=== PATIENT | male | born 1975 | race Caucasian/White ===

== ENCOUNTER 2017-05-07 16:39 | Emergency (ER) | payer OTHER, SELFPAY ==
[2017-05-07 17:04] LABS: #Basophils 0.1 thou/uL (0.0-0.2); #Eosinphils 0.5 thou/uL (0.0-0.7); #Lymphocytes 1.4 thou/uL (1.20-3.40); #Monocytes 0.4 thou/uL (0.11-0.59); #Neutrophils 2.8 thou/uL (1.40-6.50); %Eosinophils 9.6 % (0.0-10.0); %Lymphocytes 27.8 % (21.0-51.0); %Monocytes 7.7 % (0.0-10.0); Hematocrit 42.3 % (42.0-52.0); Mean Platelet Volume 7.9 fL (7.4-10.4); Red Blood Cell (RBC) Count 4.51 mill/uL (4.70-6.10); White Blood Cell (WBC) Count 5.2 thou/uL (4.8-10.8)
[2017-05-07] MEDS ORDERED: ISOVUE-370 76%-LOCM 1 ML ONE (17:06)
[2017-05-07 17:22] LABS: ALT (SGPT) 27 U/L (8-55); AST (SGOT) 18 U/L (5-34); Alkaline Phosphatase 67 U/L (40-150); Anion Gap 11 mmol/L (10-20); BUN (Urea Nitrogen) 12 mg/dL (8.9-20.6); Bilirubin, Total 0.5 mg/dL (0.2-1.2); Calc. Creatinine Clearance 0 mL/min (70-130); Calcium 9.3 mg/dL (7.8-10.44); Carbon Dioxide 28 mmol/L (22-29); Chloride 107 mmol/L (98-107); Estimated GFR-MDRD 68; Globulin 3.3 g/dL (2.4-3.5); Protein, Total 7.1 g/dL (6.0-8.3)
[2017-05-07 17:26] LABS: CK (CPK) 101 U/L (30-200); Lipase 29 U/L (8-78)
[2017-05-07 17:38] LABS: Troponin I Less than 0.010 ng/mL (< 0.028)
--- NOTE | 2017-05-07 18:27 | RAD ---
ONE VIEW CHEST: History: Chest pain. Comparison: 12-19-04 FINDINGS: Portable upright chest. Normal cardiac silhouette. Pulmonary vessels and hilum are normal. Costophre christal angles are clear. Possible scarring or atelectasis in the left lung base. No consolidation or ma ss. No pneumothorax or osseous abnormality. IMPRESSION: No acute cardiopulmonary process. POS: [facility]
--- NOTE | 2017-05-07 20:54 | CT ---
CT ANGIOGRAM OF THE CHEST: History: Evaluate for pulmonary artery embolism. Chest pain, onset today. Comparison: None. Technique: CT angiogram of the chest was performed in the axial plane. Coronal and bilateral oblique 3D reformatted images are submitted for interpretation. FINDINGS: Trachea and central bronchi are patent. There are patchy ground glass opacities predominately in bot h lower lobes which may be due to edema. No mass. No consolidation. No pleural effusions or pneumoth orax. No mediastinal mass, lymphadenopathy, or hematoma. Heart size is within normal limits. No significan t pericardial fluid. The thoracic aorta and upper abdominal aorta have a normal caliber. No periaort ic fat stranding. Visualized fat organs are grossly unremarkable. Questionable right adrenal gland nodule, incompletel y evaluated. There are no osteoblastic or osteolytic lesions. Adequate contrast opacification of the pulmonary artery systems to the level of the segmental arteri es. No filling defect to suggest thromboembolism. IMPRESSION: 1. No evidence of pulmonary embolism to the level of the segmental arteries. 2. Questionable indeterminate right adrenal nodule which can be better interrogated on non-emergent basis with abdominal MRI or adrenal mass protocol CT. POS: [facility]
--- NOTE | 2017-05-13 11:45 | EKG ---
Test Reason : CHEST PAIN Blood Pressure : / mmHG Vent. Rate : 088 BPM Atrial Rate : 088 BPM P-R Int : 148 ms QRS Dur : 092 ms QT Int : 344 ms P-R-T Axes : 052 008 006 degrees QTc Int : 416 ms Normal sinus rhythm Normal ECG Confirmed by VICKI PINON, HUMBLE ([id number]), marketing editor GILBERT BILLS ([id number]) on 05/13/2017 11:44:56 AM Referred By: JOYCE Confirmed By:HUMBLE COHEN MD
== END 2017-05-07 19:24 | disposition home or self-care (01) ==
LOC: ERS 16:39
DX: R07.9 Chest pain, unspecified (principal); F41.9 Anxiety disorder, unspecified
CPT/HCPCS: 36415; 71010; 71275; 80053; 82553; 83690; 84484; 85025; 85379; 93005; 96360

== ENCOUNTER 2022-09-29 14:58 | Outpatient (CLI) | payer BC | END 2022-09-29 14:59 | disposition home or self-care (01) | LOC: TBSIIMAG 14:58 | PROVIDERS: ATTEND Orthopaedic Surgery | DX: S83.411A Sprain of medial collateral ligament of right knee, initial encounter (principal); S83.231A Complex tear of medial meniscus, current injury, right knee, initial encounter; S83.521A Sprain of posterior cruciate ligament of right knee, initial encounter; R93.7 Abnormal findings on diagnostic imaging of other parts of musculoskeletal system; M23.8X1 Other internal derangements of right knee; M17.11 Unilateral primary osteoarthritis, right knee; M23.91 Unspecified internal derangement of right knee ==

== ENCOUNTER 2023-06-28 16:19 | Emergency (ER) | payer BC ==
[~2023-06-28 16:19] MED LIST: Iopamidol-370 76% 500 ML MDV (1 ML CHARGE) ONE
[2023-06-28 17:30] LABS: #Eosinphils 0.2 thou/uL (0.0-0.7); #Monocytes 0.8 thou/uL (0.11-0.59); #Neutrophils 6.3 thou/uL (1.40-6.50); %Basophils 0.4 % (0.0-1.0); %Eosinophils 2.1 % (0.0-10.0); %Lymphocytes 13.4 % (21.0-51.0); %Monocytes 9.1 % (0.0-10.0); %Neutrophils 74.6 % (42.0-75.0); Hematocrit 43.4 % (42.0-52.0); Hemoglobin 14.9 g/dL (14.0-18.0); Mean Corpuscular HGB CONC 34.3 g/dL (32.0-36.0); Mean Corpuscular Volume 93.1 fl (78.0-98.0); Mean Platelet Volume 10.5 fL (7.4-10.4); Platelet Count 196 10x3/uL (130-400); Red Blood Cell (RBC) Count 4.66 mill/uL (4.70-6.10); White Blood Cell (WBC) Count 8.5 10x3/uL (4.8-10.8)
[2023-06-28] MEDS ORDERED: Ketorolac Tromethamine 30 MG/ML VIAL ONE (17:39)
[2023-06-28 18:00] LABS: ALT (SGPT) 28 U/L (8-55); AST (SGOT) 19 U/L (5-34); Albumin 4.2 g/dL (3.5-5.0); Alkaline Phosphatase 59 U/L (40-110); Anion Gap 11 mmol/L (10-20); BUN (Urea Nitrogen) 14 mg/dL (8.9-20.6); Bilirubin, Total 1.8 mg/dL (0.2-1.2); Calc. Creatinine Clearance 0 mL/min (70-130); Calcium 9.4 mg/dL (7.8-10.44); Carbon Dioxide 30 mmol/L (22-29); Chloride 104 mmol/L (98-107); Estimated GFR 76; Globulin 3.1 g/dL (2.4-3.5); Glucose 76 mg/dL (70-105); Lipase 23 U/L (8-78); Potassium 3.8 mmol/L (3.5-5.1); Protein, Total 7.3 g/dL (6.0-8.3); Sodium 141 mmol/L (136-145)
[2023-06-28 18:12] LABS: Bacteria/HPF None Seen HPF (None Seen); Bilirubin Negative (Negative); Blood, Urine Negative (Negative); CAUTI Indications for Culture Pelvic or flank pain; Clarity Clear (Clear); Glucose, Urine (Dipstick) Normal (Negative); Ketone, Urine Negative (Negative); Leukocyte Negative Leu/uL (Negative); Nitrite Negative (Negative); Protein, Urine (Dipstick) Negative (Neg-Trace); RBC/HPF 0-3 HPF (0-3); Specific Gravity, Urine 1.021 (1.002-1.036); Squamous Epithelial 0-3 HPF (0-3); Urobilinogen Normal mg/dL (Less than 2); WBC/HPF 0-3 HPF (0-3)
[2023-06-28 18:17] LABS: Urine Culture Reflex No No
== END 2023-06-28 18:56 | disposition home or self-care (01) ==
LOC: ERS 16:19
DX: K57.32 Diverticulitis of large intestine without perforation or abscess without bleeding (principal); K76.0 Fatty (change of) liver, not elsewhere classified
CPT/HCPCS: 36415; 74177; 80053; 81001; 83690; 85025; 93005; 96361; 96374; J1885; Q9967

== ENCOUNTER 2024-07-21 02:58 | Emergency (ER) | payer BC, OTHER | END 2024-07-21 05:25 | disposition home or self-care (01) | LOC: ERS 02:58 | DX: S16.1XXA Strain of muscle, fascia and tendon at neck level, initial encounter (principal); S80.01XA Contusion of right knee, initial encounter; M54.50 Low back pain, unspecified; V49.9XXA Car occupant (driver) (passenger) injured in unspecified traffic accident, initial encounter; Y93.89 Activity, other specified | CPT/HCPCS: 70450; 71260; 72125; 74177 ==